=== PATIENT | female | born 1955 | race Caucasian/White ===

== ENCOUNTER 2022-03-11 01:14 | Emergency (ER) | payer OTHER ==
[2022-03-11] MEDS ORDERED: Ondansetron PF 4 MG/2 ML Vial ONE (01:35)
[2022-03-11 01:52] LABS: #Eosinphils 0.1 10x3/uL (0.0-0.5); #Monocytes 0.6 10x3/uL (0.0-1.1); #Neutrophils 13.4 10x3/uL (1.5-8.4); %Basophils 0.3 % (0.0-2.0); %Eosinophils 0.3 % (0.0-6.0); %Lymphocytes 3.7 % (18.0-47.0); %Monocytes 3.8 % (0.0-10.0); %Neutrophils 91.6 % (40.0-75.0); Hemoglobin 13.9 g/dL (12.0-15.5); Mean Corpuscular HGB CONC 35.5 g/dL (32.0-36.0); Mean Corpuscular Hemoglobin 31.5 pg (27.0-33.0); Mean Corpuscular Volume 88.7 fl (81.6-98.3); Mean Platelet Volume 10.6 fl (7.4-10.4); Platelet Count 237 10x3/uL (150-450); RBC Distribution Width 12.5 % (11.5-14.5); Red Blood Cell (RBC) Count 4.41 10x6/uL (3.90-5.03); White Blood Cell (WBC) Count 14.6 10x3/uL (3.5-10.5)
[2022-03-11 02:07] LABS: Anion Gap 23 mmol/L (10-20); Carbon Dioxide 17 mmol/L (23-31); Chloride 100 mmol/L (98-107); Potassium 3.1 mmol/L (3.5-5.1); Sodium 137 mmol/L (136-145)
[2022-03-11 02:08] LABS: ALT (SGPT) 15 U/L (8-55); AST (SGOT) 22 U/L (5-34); Alkaline Phosphatase 44 U/L (40-110); BUN (Urea Nitrogen) 17 mg/dL (9.8-20.1); Bilirubin, Total 0.8 mg/dL (0.2-1.2); Calc. Creatinine Clearance 0 mL/min (70-130); Calcium 10.6 mg/dL (7.8-10.44); Estimated GFR 79; Globulin 3.2 g/dL (2.4-3.5); Glucose 170 mg/dL (80-115); Lipase 24 U/L (8-78); Protein, Total 8.2 g/dL (5.8-8.1)
== END 2022-03-11 06:15 | disposition home or self-care (01) ==
LOC: CSHERS 01:14
DX: K52.9 Noninfective gastroenteritis and colitis, unspecified (principal); I10 Essential (primary) hypertension
CPT/HCPCS: 74177; 80053; 83690; 85025; 96361; 96374; J2405

== ENCOUNTER 2024-01-06 14:37 | Outpatient (CLI) | payer BC, OTHER | END 2024-01-06 14:38 | disposition home or self-care (01) | LOC: CSHMAMMO 14:37 | PROVIDERS: ATTEND Family Medicine | DX: Z78.0 Asymptomatic menopausal state (principal) | CPT/HCPCS: 77080 ==